=== PATIENT | male | born 1980 ===

== ENCOUNTER 2025-01-07 07:11 | Day surgery (SDC) | payer OTHER ==
[2025-01-05 09:22] VITALS: BMI 25.7
[2025-01-07] MEDS ORDERED: LIDOCAINE HCL/PF 1% SDV 5ML VIAL ONE (07:16)
[2025-01-07] MEDS ORDERED: DEXAMETHASONE SOD PHOSPHATE 10 MG/1 ML VIAL ONE (07:17)
[2025-01-07] MEDS: LIDOCAINE HCL 1% PRESERVATIVE FREE - 30ML VIAL IJ ONE ×2 (08:43)
[2025-01-07] MEDS: IOHEXOL 180 MG/1 ML ML IJ ONE ×2 (08:44)
[2025-01-07] MEDS: DEXAMETHASONE SOD PHOSPHATE 10 MG/1 ML VIAL IM ONE ×2 (08:46)
[2025-01-07 09:07] VITALS: RESP 18; TEMP 97.6
[2025-01-07] MEDS ORDERED: ACETAMINOPHEN 500 MG TABLET (FP) ONE (09:08)
[2025-01-07] MEDS: ACETAMINOPHEN 500 MG TABLET (FP) PO PRN (09:12)
[2025-01-07 09:33] VITALS: BP 131/76; PULSE 79
== END 2025-01-07 09:30 | disposition home or self-care (01) ==
LOC: JASU-SURG 07:11
PROVIDERS: ATTEND Pain Medicine Pain Medicine
PROC: 3E0R3BZ Introduction of Anesthetic Agent into Spinal Canal, Percutaneous Approach (ICD-10-PCS; 2025-01-07)
PROC: 3E0R33Z Introduction of Anti-inflammatory into Spinal Canal, Percutaneous Approach (ICD-10-PCS; principal; 2025-01-07 08:30)
DX: M54.16 Radiculopathy, lumbar region (principal)
CPT/HCPCS: 76000-TC-FY; J1100